=== PATIENT | female | born 1995 | race Caucasian/White ===

== ENCOUNTER 2017-02-16 17:12 | Emergency (ER) | payer SELFPAY ==
[2017-02-16 17:51] VITALS: BP 166/98; PULSE 96; TEMP 97.9; BMI 24.5
--- NOTE | 2017-02-16 17:55 | PDOC ---
History of Present Illness - General Chief Complaint: Pain Stated Complaint: RIGHT HAND AND WRIST PAIN Time Seen by Provider: 02/16/17 17:19 History Source: Patient Exam Limitations: No Limitations - History of Present Illness Initial Comments: 02/16/17 17:47 21y F no pmhx presents with complaint of right hand/wrist pain. pt was ice skating 2 days ago, an fell backwards. +pain to her radial aspect of hand/ wrist. she took tylenol ysterday with miniaml impveoment. pain worsened so she came to the ED for evaluation. no numbness/tingling/weakness noheadache, headainjury, loc no neck pain, back pain, other extremity pain. Past History - Past Medical History Allergies/Adverse Reactions: Allergies Allergy/AdvReac Type Severity Reaction Status Date / Time No Known Allergies Allergy Unverified 02/16/17 17:14 Home Medications: Ambulatory Orders NK [No Known Home Medication] 02/16/17 COPD: No Other medical history: DENIES - Suicide/Smoking/Psychosocial Hx Smoking History: Never smoked Information on smoking cessation initiated: No Hx Alcohol Use: Yes (SOCIAL) Drug/Substance Use Hx: No Substance Use Type: Alcohol Review of Systems - Review of Systems Able to Perform ROS?: Yes Comments:: 02/16/17 17:55 Musculskelatal - +R wirst pain no reported back pain, joint swelling skin - +bruising no reported, erythema, rash neurological: no reported headache, numbness, focal weakness, tingling, ataxia, hematologic: no reported anemia, easy bruising, easy bleeding *Physical Exam - Vital Signs Last Vital Signs Temp Pulse Resp BP Pulse Ox 97.9 F 96 H 16 166/98 100 02/16/17 17:14 02/16/17 17:14 02/16/17 17:14 02/16/17 17:14 02/16/17 17:14 - Physical Exam Comments: 02/16/17 17:57 EXTREMITIES: mild diffuse tenderness to distal radius/wrist/thumb, ecchymosis to the thenar emenince, no focal bony tenderness, minimal edema to wrist, limited wrist extension, mil tenderness at snuff box, no ttp on forearm/elbow/ shoulder, sensation intact throughout ED Treatment Course - RADIOLOGY Radiology Studies Ordered: Category Date Time Status WRIST W/HAND-RIGHT* [RAD] Stat Radiology 02/16/17 17:20 Ordered Medical Decision Making - Medical Decision Making 02/16/17 17:59 s/p fall now with R wrist pain diffuse tenderness minimal bruising on R thenar eminence mild ttp at snuff box suspect sprain will ck xray to ro fx consider scaphoid fx due to snuff box tenderness if xray neg will likely place in thumb spica and rpeat xray as outpatient 02/16/17 18:43 xrays do not appear to show any fx put pt in a thumb spica will have her fu with pmd or ortho in approx 1 week for reevalaution return precautions were discussed I discussed the physical exam findings, ancillary test results and final diagnoses with the patient. I answered all of the patient's questions. The patient was satisfied with the care received and felt comfortable with the discharge plan and treatment plan. The patient will call their primary care physician within 24 hours to arrange follow-up and will return to the Emergency Department with any new, persistent or worsening symptoms. *DC/Admit/Observation/Transfer Diagnosis at time of Disposition: Wrist pain Qualifiers: Laterality: right Qualified Code(s): M25.531 - Pain in right wrist - Discharge Dispostion Disposition: HOME Condition at time of disposition: Stable Admit: No - Referrals Referrals: Saulo Ibrahim MD [Staff Physician] - - Patient Instructions Printed Discharge Instructions: DI for Wrist Pain Additional Instructions: Return to the emergency department immediately with ANY new, persistent or worsening symptoms. Take motrin or tyenol for pain. Keep your arm elevated to mnimize any swelling. Please follow-up with your primary care doctor or orthopedics for evaluation of your wrist pain in 1 week and repeat imaging. Keep your splint on until you follow up with your doctor. If you had any xrays during your visit, it was read preliminarily by myself, a Radiologist will review it and if there are any additional findings we will call you. Print Language: YI - Post Discharge Activity
== END 2017-02-16 18:50 | disposition home or self-care (01) ==
LOC: FER 17:12
PROC: 2W3GX1Z Immobilization of Right Thumb using Splint (ICD-10-PCS; principal; 2017-02-16)
DX: M25.531 Pain in right wrist (principal); W18.39XA Other fall on same level, initial encounter; Y93.21 Activity, ice skating; Y92.330 Ice skating rink (indoor) (outdoor) as the place of occurrence of the external cause
CPT/HCPCS: 73110-TC-RT; 73130-TC-RT; 99282-25